=== PATIENT | female | born 1975 | race Caucasian/White ===

== ENCOUNTER → 2018-01-30 07:46 | Outpatient (CLI) | payer OTHER, SELFPAY ==
--- NOTE | 2018-01-30 07:46 | DT_ITS ---
This patient was seen during an EMR downtime January 27, 2018 - February 03, 2018. This patient may have a combination of paper and electronic documentation or all paper documentation. All documentation is viewable within the e-chart portion of [email or web address] for each patient visit.
--- NOTE | 2018-01-30 07:49 | BI_ITS ---
MAMMOGRAPHY - BILATERAL SCREENING REASON FOR EXAM: Female, 42 years old. Routine annual screening examination. PERTINENT HISTORY: Non-contributory. TECHNIQUE: Digital bilateral breast bev (3D mammographic acquisition) in the CC and MLO projections. 2-D mediolateral oblique (MLO) and craniocaudad (CC) views of both breasts were obtained. CAD: Full Field Digital Mammography with Computer Added Detection was performed. COMPARISON: Comparison is made with prior study dated January 10, 2017 and January 10, 2016. FINDINGS: Breast Composition: The breasts are heterogeneously dense, which may obscure small masses. There are no dominant masses or suspicious calcifications. No other significant abnormalities are identified. There has been no significant change since the prior study. BI/SCREENING MAMM (CAD), BILAT IMPRESSION: Stable bilateral screening mammogram. Yearly follow-up mammogram recommended. (A) ASSESSMENT CATEGORY: BIRADS Category 1: Negative. A letter regarding these results will be sent to the patient by the facility within 30 days. Approximately 10% of breast cancers are not detected by mammography. A normal mammogram should not delay biopsy of a clinically suspicious abnormality. [id number] Electronically Signed: Branden Whittaker MD at 8:36 EDT Tel [phone], Service support ,
== END ==
PROVIDERS: Family Provider Family Medicine; PCP Family Medicine; Visit Provider Family Medicine
DX: Z12.31 Encounter for screening mammogram for malignant neoplasm of breast (principal)
CPT/HCPCS: 77063; 77067

== ENCOUNTER → 2019-02-03 07:56 | Outpatient (CLI) | payer OTHER, SELFPAY ==
--- NOTE | 2019-02-03 07:58 | BI_ITS ---
MAMMOGRAPHY - BILATERAL SCREENING REASON FOR EXAM: Female, 43 years old. Routine annual screening examination. PERTINENT HISTORY: Non-contributory. TECHNIQUE: Digital bilateral breast fanny (3D mammographic acquisition) in the CC and MLO projections. 2-D mediolateral oblique (MLO) and craniocaudad (CC) views of both breasts were obtained. CAD: Full Field Digital Mammography with Computer Added Detection was performed. COMPARISON: Comparison is made with prior study dated January 30, 2018 and January 10, 2017. FINDINGS: Breast Composition: The breasts are heterogeneously dense, which may obscure small masses. There are no dominant masses or suspicious calcifications. No other significant abnormalities are identified. There has been no significant change since the prior study. BI/SCREEN MAMM (CAD) W/FANNY BILAT IMPRESSION: Stable bilateral screening mammogram. Yearly follow-up mammogram recommended. (A) ASSESSMENT CATEGORY: BIRADS Category 1: Negative. A letter regarding these results will be sent to the patient by the facility within 30 days. Approximately 10% of breast cancers are not detected by mammography. A normal mammogram should not delay biopsy of a clinically suspicious abnormality. [id number] Electronically Signed: Branden Whittaker, at 9:20 EDT , Service support ,
== END ==
PROVIDERS: Family Provider Family Medicine; PCP Family Medicine; Referring Provider Family Medicine; Visit Provider Family Medicine
DX: Z12.31 Encounter for screening mammogram for malignant neoplasm of breast (principal)
CPT/HCPCS: 77063; 77067

== ENCOUNTER → 2019-12-30 15:23 | Outpatient (CLI) | payer OTHER, SELFPAY ==
[2020-01-01 15:23] LABS: HPV Reflexed? NOT INDICATED
== END ==
PROVIDERS: PCP Family Medicine; Referring Provider Family Medicine; Visit Provider Family Medicine
DX: Z12.4 Encounter for screening for malignant neoplasm of cervix (principal)
CPT/HCPCS: 88175; G0145

== ENCOUNTER → 2020-02-09 07:40 | Outpatient (CLI) | payer OTHER, SELFPAY ==
--- NOTE | 2020-02-09 07:44 | BI_ITS ---
MAMMOGRAPHY - BILATERAL SCREENING REASON FOR EXAM: Female, 44 years old. Routine annual screening examination. PERTINENT HISTORY: Non-contributory. TECHNIQUE: Digital bilateral breast fanny (3D mammographic acquisition) in the CC and MLO projections. 2-D mediolateral oblique (MLO) and craniocaudad (CC) views of both breasts were obtained. CAD: Full Field Digital Mammography with Computer Added Detection was performed. COMPARISON: Comparison is made with prior examination dated February 03, 2019 and January 30, 2018. FINDINGS: Breast Composition: The breasts are heterogeneously dense, which may obscure small masses. There are no dominant masses or suspicious calcifications. No other significant abnormalities are identified. There has been no significant change since the prior study. BI/SCREEN MAMM (CAD) W/FANNY BILAT IMPRESSION: Stable bilateral screening mammogram. Yearly follow-up mammogram recommended. (A) ASSESSMENT CATEGORY: BIRADS Category 1: Negative. A letter regarding these results will be sent to the patient by the facility within 30 days. Approximately 10% of breast cancers are not detected by mammography. A normal mammogram should not delay biopsy of a clinically suspicious abnormality. [id number] Electronically Signed: Branden Whittaker, at 9:07 EDT , Service support ,
== END ==
PROVIDERS: PCP Family Medicine; Referring Provider Family Medicine; Visit Provider Family Medicine
DX: Z12.31 Encounter for screening mammogram for malignant neoplasm of breast (principal)
CPT/HCPCS: 77063; 77067

== ENCOUNTER → 2020-10-26 12:05 | Outpatient (CLI) | payer OTHER, SELFPAY ==
[2020-10-27 08:31] LABS: SARS-COV-2 TOTAL ABS Reactive (Nonreactive)
== END ==
PROVIDERS: PCP Family Medicine; Referring Provider Family Medicine; Visit Provider Family Medicine
DX: Z20.822 Contact with and (suspected) exposure to COVID-19 (principal)
CPT/HCPCS: 36415; 86769

== ENCOUNTER → 2021-01-11 14:46 | Outpatient (CLI) | payer OTHER, SELFPAY ==
[2021-01-11 18:32] LABS: Anion Gap 9 (5-15); BUN 6 mg/dL (7-18); BUN/Creat Ratio 8.9 RATIO (10-20); Calcium,Total 9.6 mg/dL (8.5-10.1); Chloride 106 mmol/L (98-107); Cholesterol 211 mg/dL (200); Creatinine, Serum 0.68 mg/dL (0.55-1.02); EST Glomerular Filtration Rate 99 mL/min (>60); Est Glom Filt Rate - Afr Amer 120 mL/min (>60); Glucose 77 mg/dL (74-106); High Density Lipoprotein 69 mg/dL; Sodium Level 141 mmol/L (136-145); Triglycerides 125 mg/dL; Very Low Density Lipoprotein 25 mg/dL (5-40)
== END ==
PROVIDERS: PCP Family Medicine; Referring Provider Family Medicine; Visit Provider Family Medicine
DX: Z01.419 Encounter for gynecological examination (general) (routine) without abnormal findings (principal)
CPT/HCPCS: 36415; 80048; 80061

== ENCOUNTER → 2021-02-09 07:16 | Outpatient (CLI) | payer OTHER, SELFPAY ==
--- NOTE | 2021-02-09 07:17 | BI_ITS ---
MAMMOGRAPHY - BILATERAL SCREENING REASON FOR EXAM: Female, 45 years old. Routine annual screening examination. PERTINENT HISTORY: Non-contributory. TECHNIQUE: Digital bilateral breast fanny (3D mammographic acquisition) in the CC and MLO projections. 2-D mediolateral oblique (MLO) and craniocaudad (CC) views of both breasts were obtained. CAD: Full Field Digital Mammography with Computer Added Detection was performed. COMPARISON: Comparison is made with prior study dated 02/09/2020 and 02/03/2019. FINDINGS: Breast Composition: The breasts are heterogeneously dense, which may obscure small masses. There are no dominant masses or suspicious calcifications. No other significant abnormalities are identified. There has been no significant change since the prior study. BI/SCRN MAMM (CAD)W/FANNY BILAT IMPRESSION: Stable bilateral screening mammogram. Yearly follow-up mammogram recommended. (A) ASSESSMENT CATEGORY: BIRADS Category 1: Negative. A letter regarding these results will be sent to the patient by the facility within 30 days. Approximately 10% of breast cancers are not detected by mammography. A normal mammogram should not delay biopsy of a clinically suspicious abnormality. [id number] Electronically Signed: Branden Whittaker MD at 8:42 EDT , Service support ,
== END ==
PROVIDERS: PCP Family Medicine; Referring Provider Family Medicine; Visit Provider Family Medicine
DX: Z12.31 Encounter for screening mammogram for malignant neoplasm of breast (principal)
CPT/HCPCS: 77063; 77067

== ENCOUNTER → 2021-04-26 16:17 | Outpatient (CLI) | payer OTHER, SELFPAY | PROVIDERS: PCP Family Medicine; Referring Provider Family Medicine; Visit Provider Family Medicine | DX: Z11.59 Encounter for screening for other viral diseases (principal) | CPT/HCPCS: 36415; 86769 ==

== ENCOUNTER → 2022-01-17 | Outpatient (CLI) | payer OTHER, SELFPAY ==
[2022-01-17 18:13] LABS: Thyroid Stim Hormone (TSH) 1.29 uIU/mL (0.358-3.74)
== END | disposition home or self-care (01) ==
LOC: MFPLAB 15:22
PROVIDERS: PCP Family Medicine; Referring Provider Family Medicine; Visit Provider Family Medicine
DX: Z00.00 Encounter for general adult medical examination without abnormal findings (principal); R63.5 Abnormal weight gain
CPT/HCPCS: 36415; 84443

== ENCOUNTER → 2022-02-13 | Outpatient (CLI) | payer OTHER, SELFPAY ==
--- NOTE | 2022-02-13 07:12 | BI_ITS ---
MAMMOGRAPHY - BILATERAL SCREENING REASON FOR EXAM: Female, 46 years old. Routine annual screening examination. PERTINENT HISTORY: Non-contributory. TECHNIQUE: Digital bilateral breast fanny (3D mammographic acquisition) in the CC and MLO projections. 2-D mediolateral oblique (MLO) and craniocaudad (CC) views of both breasts were obtained. CAD: Full Field Digital Mammography with Computer Added Detection was performed. COMPARISON: Comparison Mammogram study is dated 02/09/2021, 02/09/2020, 02/03/2019, 01/30/2018. FINDINGS: Breast Composition: The breasts are heterogeneously dense, which may obscure small masses. There are no dominant masses or suspicious calcifications. No other significant abnormalities are identified. There has been no significant change since the prior study. BI/SCRN MAMM (CAD)W/FANNY BILAT IMPRESSION: Stable bilateral screening mammogram. Yearly follow-up mammogram recommended. (A) ASSESSMENT CATEGORY: BIRADS Category 1: Negative. A letter regarding these results will be sent to the patient by the facility within 30 days. Approximately 10% of breast cancers are not detected by mammography. A normal mammogram should not delay biopsy of a clinically suspicious abnormality. [id number] Electronically Signed: Jani Pereira, at 8:58 EDT ,
== END | disposition home or self-care (01) ==
LOC: OPBI 07:09
PROVIDERS: PCP Family Medicine; Visit Provider Family Medicine
DX: Z12.31 Encounter for screening mammogram for malignant neoplasm of breast (principal)
CPT/HCPCS: 77063; 77067

== ENCOUNTER → 2023-01-18 | Outpatient (CLI) | payer OTHER, SELFPAY ==
[2023-01-30 10:09] LABS: HPV APTIMA, High Risk Negative (Negative)
[2023-02-02 11:10] LABS: HPV Reflexed? YES, CHARGE PATIENT
== END | disposition home or self-care (01) ==
PROVIDERS: PCP Family Medicine; Referring Provider Family Medicine; Visit Provider Family Medicine
DX: Z12.4 Encounter for screening for malignant neoplasm of cervix (principal)
CPT/HCPCS: 87624; 88175; G0145

== ENCOUNTER → 2023-02-18 | Outpatient (CLI) | payer OTHER, SELFPAY ==
--- NOTE | 2023-02-18 07:03 | BI_ITS ---
MAMMOGRAPHY - BILATERAL SCREENING REASON FOR EXAM: Female, 47 years old. Routine annual screening examination. PERTINENT HISTORY: Non-contributory. TECHNIQUE: Digital bilateral breast fanny (3D mammographic acquisition) in the CC and MLO projections. 2-D mediolateral oblique (MLO) and craniocaudad (CC) views of both breasts were obtained. CAD: Full Field Digital Mammography with Computer Added Detection was performed. COMPARISON: Comparison is made with prior study dated February 13, 2022 and February 09, 2021. FINDINGS: Breast Composition: The breasts are heterogeneously dense, which may obscure small masses. There are no dominant masses or suspicious calcifications. Stable small benign-appearing bilateral axillary lymph nodes. No other significant abnormalities are identified. There has been no significant change since the prior study. BI/SCRN MAMM (CAD)W/FANNY BILAT IMPRESSION: Stable bilateral screening mammogram. Yearly follow-up mammogram recommended. (A) ASSESSMENT CATEGORY: BIRADS Category 2: Benign. A letter regarding these results will be sent to the patient by the facility within 30 days. Approximately 10% of breast cancers are not detected by mammography. A normal mammogram should not delay biopsy of a clinically suspicious abnormality. [id number] Electronically Signed: Branden Whittaker MD at 10:12 EDT ,
== END | disposition home or self-care (01) ==
LOC: OPBI 06:57
PROVIDERS: PCP Family Medicine; Referring Provider Family Medicine; Visit Provider Family Medicine
DX: Z12.31 Encounter for screening mammogram for malignant neoplasm of breast (principal)
CPT/HCPCS: 77063; 77067

== ENCOUNTER → 2024-02-20 | Outpatient (CLI) | payer OTHER, SELFPAY ==
--- NOTE | 2024-02-20 07:06 | BI_ITS ---
MAMMOGRAPHY - BILATERAL SCREENING REASON FOR EXAM: Female, 48 years old. Routine annual screening examination. PERTINENT HISTORY: Non-contributory. TECHNIQUE: Digital bilateral breast fanny (3D mammographic acquisition) in the CC and MLO projections. 2-D mediolateral oblique (MLO) and craniocaudad (CC) views of both breasts were obtained. CAD: Full Field Digital Mammography with Computer Added Detection was performed. COMPARISON: Comparison is made with prior study dated February 18, 2023 and February 13, 2022. FINDINGS: Breast Composition: The breasts are heterogeneously dense, which may obscure small masses. There are no dominant masses or suspicious calcifications. Stable small bilateral axillary lymph nodes. No other significant abnormalities are identified. There has been no significant change since the prior study. BI/SCRN MAMM (CAD)W/FANNY BILAT IMPRESSION: Stable bilateral screening mammogram. Yearly follow-up mammogram recommended. (A) ASSESSMENT CATEGORY: BIRADS Category 2: Benign. A letter regarding these results will be sent to the patient by the facility within 30 days. Approximately 10% of breast cancers are not detected by mammography. A normal mammogram should not delay biopsy of a clinically suspicious abnormality. [id number] Electronically Signed: Branden Whittaker MD at 8:00 EDT ,
== END | disposition home or self-care (01) ==
LOC: OPBI 07:06
PROVIDERS: PCP Family Medicine; Referring Provider Family Medicine; Visit Provider Family Medicine
DX: Z12.31 Encounter for screening mammogram for malignant neoplasm of breast (principal)
CPT/HCPCS: 77063; 77067

== ENCOUNTER → 2025-02-25 | Outpatient (CLI) | payer OTHER, SELFPAY ==
--- NOTE | 2025-02-25 07:07 | BI_ITS ---
EXAM: SCRN MAMM (CAD)W/FANNY BILAT DATE: 02/25/2025 CLINICAL HISTORY: F, Age 49 y/o , SCREENING TECHNIQUE: SCRN MAMM (CAD)W/FANNY BILAT COMPARISON: Prior exam(s) dated 02/20/2024, 02/18/2023, 02/13/2022. FINDINGS: TISSUE DENSITY: There are scattered areas of fibroglandular density. Bilateral Breast Mammographic Findings: No significant masses, calcifications or other abnormalities are identified. BI/SCRN MAMM (CAD)W/FANNY BILAT IMPRESSION: There is no mammographic evidence of malignancy. OVERALL FINAL ASSESSMENT BI-RADS 1: NEGATIVE. RECOMMEND ANNUAL MAMMOGRAPHIC SCREENING. RECOMMENDATION: Routine annual follow-up in 1 Year A letter with findings and recommendations will be mailed to the patient. Reading Location: [id number]
--- NOTE | 2025-02-25 07:07 | BI_ITS ---
EXAM: SCRN MAMM (CAD)W/FANNY BILAT DATE: 02/25/2025 CLINICAL HISTORY: F, Age 49 y/o , SCREENING TECHNIQUE: SCRN MAMM (CAD)W/FANNY BILAT COMPARISON: Prior exam(s) dated 02/20/2024, 02/18/2023, 02/13/2022. FINDINGS: TISSUE DENSITY: There are scattered areas of fibroglandular density. Bilateral Breast Mammographic Findings: No significant masses, calcifications or other abnormalities are identified. BI/SCRN MAMM (CAD)W/FANNY BILAT IMPRESSION: There is no mammographic evidence of malignancy. OVERALL FINAL ASSESSMENT BI-RADS 1: NEGATIVE. RECOMMEND ANNUAL MAMMOGRAPHIC SCREENING. RECOMMENDATION: Routine annual follow-up in 1 Year A letter with findings and recommendations will be mailed to the patient. Reading Location: [id number]
--- OUTSIDE RECORDS SUMMARY | 2025-02-25 07:21 | XMS RPT_ITS | CCD ---
Author Organization [facility] Informat ion Partnership [facility] Care Team Providers Care Agronomist Name Role Phone SAMPSON RUBIO Attending Unava ilKELLY Montes Primary Care Unavailable Kelly Marley Referring Unavailable Kelly Marley Attending Unavailable Kelly Marley Primary Care Unavailable Allergies Allergy Classification Reported Allergen(s) Allergy Type Date of Onset Reaction(s) Facility (1 source) Penicillins; Translations: [PENICILLINS] Propensity to adverse reactions to drug (disorder) [facility] Repository Problems Problem Classification Problem Date Documented Da te Episodic/Chronic Other and unspecified benign neoplasm (2 sources) Benign lipomatous neoplasm, unspecified; Translations: [Benign lipomatous neoplasm, unspecified] Onset: 03-05-2023 Episodic Other screening for suspected conditions (not mental disorders or infectious disease) (1 source) Encounter for screening mammogram for malignant neoplasm of breast; Translations: [Encounter for screening mammogram for malignant neoplasm of breast] Onset: 03-06-2024 Episodic Results Test Name Value Interpretation Reference Range Facility SCRN MAMM (CAD)W/FANNY BILATo n 02-20-2024 SCRN MAMM (CAD)W/FANNY BILAT [facility] Imaging Services [address], [place] [id number] SCRN MAMM (CAD)W/FANNY BILAT MR#: [id number] Acct: [id number] Name: TRAY MARVIN Rep #: [id number] : 1975 F 48 From: Branden travis MD PCP: Dr. Kelly Marley MD Status: REG CLI Study: SCRN MAMM (CAD)W/FANNY BILAT Date of Exam: 01/25 03/18 Exam# [id number] Ordering Dr: Kelly Marley MD [id number] MAMMOGRAPHY - BILATERAL SCREENING REASON FOR EXAM: Female, 48 years old. Routine annual screening examination. PERTINENT HISTORY: Non-contributory. TECHNIQUE: Digital bilateral breast fanny (3D mammographic acquisition) in the CC and MLO projections. 2-D mediolateral oblique (MLO) and craniocaudad (CC) views of both breasts were obtained. CAD: Full Field Digital Mammography with Computer Added Detection was performed. COMPARISON: Comparison is made with prior study dated February 18, 2023 and February 13, 2022. FINDINGS: Breast Composition: The breasts are heterogeneously dense, which may obscure small masses. There are no dominant masses or suspicious calcifications. Stable small bilateral axillary lymph nodes. No other significant abnormalities are identified. There has been no significant change since the prior study. BI/SCRN MAMM (CAD)W/FANNY BILAT IMPRESSION: Stable bilateral screening mammogram. Yearly follow-up mammogram recommended. (A) ASSESSMENT CATEGORY: BIRADS Category 2: Benign. A letter regarding these results will be sent to the patient by the facility within 30 days. Approximately 10% of breast cancers are not detected by mammography. A normal mammogram should not delay biopsy of a clinically suspicious abnormality. [id number] Electronically Signed: Branden Whittaker MD at 8:00 EDT , CC: Dr. Kelly Marley MD Senior Chemical Engineer: Signed Normal [facility] Cervical or vagninal specime n microscopic examination by cytology stain (reported asOrdered By: Kelly Marley on 01-18-2023 Cytology report Cyto stain Doc (Cvx/Vag) Comment . [facility] Comment on above: The Pap smear is a s creening test designed to aid in thedetection of premalignant and malignant conditions of theuterine cervix. It is not a diagnostic procedure andshould not be used as the sole means of detecting cervicalcancer. Both false-positive and false-negative reports dooccur. Detection in cervical specim en of any of human papilloma virus (HPV) 16, 18, 31, 33,Ordered By: Kelly Marley on 01-18-2023 HPV 16+18+31+33+35+39+45+51 +52+56+58+59+66+68 DNA Probe+sig amp Ql (Cvx) Negative Negative [facility] Comment on above: This nucleic acid am plification test detects fourteen high-risk HPV types (16,18,31,33,35,39,45,51,52,56,58,59,66,68)without differentiation.Performed at: [facility] [id number] Director: Analia Plummer MD, Phone: [phone] at: [facility] [address] [place], [place] [id number] Director: Joey Ortiz MD, Phone: [phone] at: =[facility] [id number] Director: Analia Plummer MD, Phone: [phone] Laboratory - CytologyOrdered By: Kelly Marley on 01-18-2023 Endbander Cyto stain Nom (Cvx/Vag) [ID] Comment . [facility] Comment on above: Khalif Carpio totechnologist (ASCP) Laboratory - Miscellaneous t estsOrdered By: Kelly Marley on 01-18-2023 Service comment (Unsp spec) [Interp] Comment . [facility] Comment on above: This liquid based Th inPrep(R) pap test was screened withthe use of an image guided system. Service comment (Unsp spec) [Interp] . . [facility] No Panel InformationOrdered By: Kelly Marley on 01-18-2023 Pathology report final diagnosis Narrative Comment . [facility] Comment on above: NEGATIVE FOR INTRAEP ITHELIAL LESION OR MALIGNANCY.THIS SPECIMEN WAS RESCREENED PART OF OUR STUDENT AMBASSADOR PROGRAM. No Panel Informationon 01-17 Thyroid Stimulating Hormone (TSH) 1.29 uIU/mL 0.358-3.74 [facility] Work Phone: Encounters Encounter Date Encounter Type Care Provider Facility Start: 02-20-2024 End: 02-20-2024 ambulatory Kelly Chris Bennettmarzena Facility:[facility] Start: 03-05-2023 End: 03-05-2023 Emergency department patient visit SAMPSON LADD [facility] Start: 02-18-2023 End: 02-18-2023 ambulatory [facility] Work Phone: Start: 02-18-2023 End: 02-18-2023 Patient encounter procedure [facility] Work Phone: Start: 01-18-2023 End: 01-18-2023 ambulatory [facility] Work Phone: Start: 01-18-2023 End: 01-18-2023 Patient encounter procedure [facility] Start: 02-13-2022 End: 02-13-2022 Patient encounter procedure [facility] Start: 01-17-2022 End: 01-17-2022 Patient encounter procedure [facility] Procedures Date Procedure Procedure Detail Performing Clinician Start: 02-18-2023 Screening mammography Start: 02-13-2022 Screening mammography Plan of Treatment Date Care Activity Detail Author Path report.final Dx Spec [facility] Payers Date Payer Category Payer Self-pay [id number] 2019 Private Health Insurance [id number] 1975 Unknown [id number] Private Health Insurance [id number] Unknown [id number] Social History Date Type Detail Facility Tobacco smoking stat [facility] Unknown if ever smoked [facility] Work Phone: Start: 1975 Sex Assigned At Female [facility] Clinical Note 01-18-2023 Note Date & Type Note Facility 01-18-2023 Note [facility] Pap Smear Specimen Adequacy January 18, 2023 2:45pm Comment . Satisfactory for evaluation. Endocervical and/or squamous metaplasticcells (endocervical component) are present. Comment on above: Satisfactory for kala luation. Endocervical and/or squamous metaplasticcells (endocervical component) are present. Clinical Note 01-18-2023 Note Date & Type Note Facility 01-18-2023 Note [facility] Pap Smear QC Review January 18, 2023 2:45pm Comment . Clara Lambert, Supervisory Threading Machine Operator (ASCP) Comment on above: Lucina Hawk Threading Machine Operator (ASCP) Evaluation note Note Date & Type Note Facility Evaluation note No assessment information availa ble [facility] Work Phone: Chief Complaint and Reason for Visit Chief Complaint SCREENING Chief Complaint SCREENING SCREENING Summary Purpose Family History No Family History Records FoundNo Family History Records Found Advance Directives No Advanced Directives Records FoundNo Advanced Directives Records Found Additional Source Comments Goals (unrecognized section and content) Goals may be documented in a n alternate sectionGoals may be documented in an alternate sectionGoals may be documented in an alternate sectionGoals may be documented in an alternate section Care Teams (unrecognized sec tion and content) Team Status: Active Member Role Status Dates Dr. Kelly Marley MD Family Provider Active Dr. Kelly Marley MD Primary Care Provider Active Team Status: Inactive Member Role Status Dates Dr. Kelly Marley MD Primary Care Prov ider, Attending Provider, Referring Provider Active INFORMATION SOURCE (unrecogn ized section and content) DATE CREATED AUTHOR 03/11/2023 [facility] DATE CREATED AUTHOR AUTHOR'S ORGANSPRING ATION 03/12/2024 [facility] FOR RECORDS PERTAINING TO PATIENTS WHO ARE OR HAVE BEEN ENROLLED IN A CHEMICAL DEPENDENCY/SUBSTANCEABUSE PROGRAM, SOME INFORMATION MAY BE OMITTED. This clinical summary was aggregated from multiple sources. Caution should be exercised in using it in the provision of clinical care. This summary normalizes information from multiple sources, and as a consequence, information in this document may materially change the coding, format and clinical context of patient data. In addition, data may be omitted in some cases. CLINICAL DECISIONS SHOULD BE BASED ON THE PRIMARY CLINICAL RECORDS. [employer] [facility]. provides no warranty or guarantee of the accuracy or completeness of information in this document.
--- OUTSIDE RECORDS SUMMARY | 2025-02-25 07:21 | XMS RPT_ITS | CCD ---
Author Organization [facility] Care Team Providers Care Machining Supervisor Name Role Phone SAMPSON RUBIO Attending Unava ilKELLY Montes Primary Care Unavailable Kelly Marley Referring Unavailable Kelly Marley Attending Unavailable Kelly Marley Primary Care Unavailable Allergies Allergy Classification Reported Allergen(s) Allergy Type Date of Onset Reaction(s) Facility (1 source) Penicillins; Translations: [PENICILLINS] Propensity to adverse reactions to drug (disorder) [facility] Repository Problems Problem Classification Problem Date Documented [...] BILATo n 02-20-2024 SCRN MAMM (CAD)W/FANNY BILAT [facility] Imaging Services [address] [place], [place] [id number] SCRN MAMM (CAD)W/FANNY BILAT MR#: [id number] Acct: [id number] Name: TRAY MARVIN Rep #: [id number] : 1975 F 48 From: Branden travis MD PCP: Dr. Kelly Marley MD Status: REG CLI Study: SCRN MAMM (CAD)W/FANNY BILAT Date of Exam: 01/25 03/18 Exam# [id number] Ordering Dr: Kelly Marley MD [id number] MAMMOGRAPHY - BILATERAL SCREENING REASON FOR EXAM: [...] delay biopsy of a clinically suspicious abnormality. [id number] Electronically Signed: Branden Whittaker MD at 8:00 EDT , CC: Dr. Kelly Marley MD Push Connector Assembler: Signed Normal [facility] Cervical or vagninal specime n microscopic examination by cytology stain (reported asOrdered By: Kelly Marley on 01-18-2023 Cytology report Cyto stain Doc (Cvx/Vag) Comment . [facility] Comment on above: The Pap smear is [...] DNA Probe+sig amp Ql (Cvx) Negative Negative [facility] Comment on above: This nucleic acid am plification test detects fourteen high-risk HPV types (16,18,31,33,35,39,45,51,52,56,58,59,66,68)without differentiation.Performed at: [facility] [id number] Director: Analia Plummer MD, Phone: [phone] at: [facility] Cyto [id number] [place], [place] [id number] Director: Joey Ortiz MD, Phone: [phone] at: =[facility] - [facility] [id number] Director: Analia Plummer MD, Phone: [phone] Laboratory - CytologyOrdered By: Kelly Marley on 01-18-2023 Account Contact Associate Cyto stain Nom (Cvx/Vag) [ID] Comment . [facility] Comment on above: Khalif Carpio totechnologist (ASCP) Laboratory - Miscellaneous t estsOrdered By: Kelly Marley on 01-18-2023 Service comment (Unsp spec) [Interp] Comment . [facility] Comment on above: This liquid based Th inPrep(R) pap test was screened withthe use of an image guided system. Service comment (Unsp spec) [Interp] . . [facility] No Panel InformationOrdered By: Kelly Marley on 01-18-2023 Pathology report final diagnosis Narrative Comment . [facility] Comment on above: NEGATIVE FOR INTRAEP ITHELIAL LESION OR MALIGNANCY.THIS SPECIMEN WAS RESCREENED PART OF OUR SUPERVISOR [employer] PROGRAM. No Panel Informationon 01-17 Thyroid Stimulating Hormone (TSH) 1.29 uIU/mL 0.358-3.74 [facility] Work Phone: Encounters Encounter Date Encounter Type Care Provider Facility Start: 02-20-2024 End: 02-20-2024 ambulatory Kelly Chris Bennettmarzena Facility:[facility] Start: 03-05-2023 End: 03-05-2023 Emergency department patient visit SAMPSON LADD [facility] Start: 02-18-2023 End: 02-18-2023 ambulatory [facility] Work Phone: Start: 02-18-2023 End: 02-18-2023 Patient encounter procedure [facility] Work Phone: Start: 01-18-2023 End: 01-18-2023 ambulatory [facility] Work Phone: Start: 01-18-2023 End: 01-18-2023 Patient encounter procedure [facility] Start: 02-13-2022 End: 02-13-2022 Patient encounter procedure [facility] Start: 01-17-2022 End: 01-17-2022 Patient encounter procedure [facility] Procedures Date Procedure Procedure Detail Performing Clinician Start: 02-18-2023 Screening mammography Start: 02-13-2022 Screening mammography Plan of Treatment Date Care Activity Detail Author Path report.final Dx Spec [facility] Payers Date Payer Category Payer Self-pay [id number] 2019 Private Health Insurance [id number] 1975 Unknown [id number] Private Health Insurance [id number] Unknown [id number] Social History Date Type Detail Facility Tobacco smoking stat [facility] Unknown if ever smoked [facility] Work Phone: Start: 1975 Sex Assigned At Female [facility] Clinical Note 01-18-2023 Note Date & Type Note Facility 01-18-2023 Note [facility] Pap Smear Specimen Adequacy January 18, 2023 2:45pm Comment . Satisfactory for evaluation. Endocervical and/or squamous metaplasticcells (endocervical component) are present. Comment on above: Satisfactory for kala luation. Endocervical and/or squamous metaplasticcells (endocervical component) are present. Clinical Note 01-18-2023 Note Date & Type Note Facility 01-18-2023 Note [facility] Pap Smear QC Review January 18, 2023 2:45pm Comment . Clara Lambert, Supervisory Screen Printing Press Operator (ASCP) Comment on above: Lucina Hawk Screen Printing Press Operator (ASCP) Evaluation note Note Date & Type Note Facility Evaluation note No assessment information availa ble [facility] Work Phone: Chief Complaint and Reason for [...] DATE CREATED AUTHOR AUTHOR'S ORGANSPRING ATION 03/12/2024 [facility] FOR RECORDS PERTAINING TO PATIENTS WHO [...] BE BASED ON THE PRIMARY CLINICAL RECORDS. [employer] [facility] provides no warranty or guarantee of the accuracy or completeness of information in this document.
== END | disposition home or self-care (01) ==
LOC: OPBI 07:06
PROVIDERS: PCP Family Medicine; Referring Provider Family Medicine; Visit Provider Family Medicine
DX: Z12.31 Encounter for screening mammogram for malignant neoplasm of breast (principal)
CPT/HCPCS: 77063; 77067

== ENCOUNTER → 2025-04-16 | Outpatient (CLI) | payer OTHER, SELFPAY ==
--- OUTSIDE RECORDS SUMMARY | 2025-04-16 07:53 | XMS RPT_ITS | CCD ---
Author Organization [facility] Informat ion Partnership DRYWALL HANGER HEL[employer] [facility] Care Team Providers Care Insurance Loss Assessor Name Role Phone SAMPSON RUBIO Attending Unava ilable KELLY MARLEY Primary Care Unavailable Mona GLASER, Dr. Mcclellan Primary Care Provider Mona GLASER, Dr. Mcclellan Attending Provider Mona GLASER, Dr. Mcclellan Referring Provider Ayaka GLASER, Dr. Kelly Perez Referring Provider Marciano GLASER, Dr. Mancuso Attending Provider Jamee Tariq Attending Unavailable Kelly Marley Referring Unavailable Eleuterio Dunn Primary Care Unavailable Eleuterio Dunn Referring Unavailable Eleuterio Dunn Primary Care Unavailable Eleuterio Dunn Attending Unavailable Allergies Allergy Classification Reported Allergen(s) Allergy Type Date of Onset Reaction(s) Facility (3 sources) Penicillins; Translations: [PENICILLINS] Propensity to adverse reactions to drug (disorder) 3 [facility] Repository (1 source) Minocycline Drug Allergy 5 [facility] (1 source) Minocycline Drug Allergy 5 [facility] Repository Medications Current Medications Medication Drug Class(es) Dates Sig (Normalized) Sig (Original) Multivitamin tablet (1 source) Start: 04-13-2025 Multivitamin tablet Active 1 {tbl} PO daily April 13, 2025 12:00am Problems Problem Classification Problem Date Documented Date Episodic/Chronic Administrative/social admission (1 source) First encounter by subject; Translations: [Persons encountering health services in other specified circumstances] 04-13-2025 Episodic Allergic reactions (1 source) Allergic condition; Translations: [Allergy, unspecified, initial encounter] 04-13-2025 Episodic Headache; including migraine (1 source) Migraine; Translations: [Migraine, unspecified, not intractable, without status migrainosus] 04-13-2025 Chronic Other and unspecified benign neoplasm (2 sources) Benign lipomatous neoplasm, unspecified; Translations: [Benign lipomatous neoplasm, unspecified] Onset: 03-05-2023 Episodic Other screening for suspected conditions (not mental disorders or infectious disease) (3 sources) Patient encounter status; Translations: [Encounter for screening for cardiovascular disorders] Onset: 03-03-2025 04-13-2025 Episodic Results Test Name Value Interpretation Reference Range Facility Internal Medicine Office Vis iton 04-12-2025 Internal Medicine Office Visit [facility] [address] [place] [address] [place] [address] OFFICE VISIT Date of Service: 04/13/25 MR#: [id number] Acct: [id number] Name: TRAY MARVIN Christine Rep #: [id number] : 1975 Provider: Dr. Jamee arana MD Age/Sex: 49/F Location: [facility] Status: Signed Intake Vital Signs 04/13/25 14:21 Height 5 ft 4 in Weight: 143 lb BMI 24.5 BP 126/74 H Blood Pressure Location Rt brachial Position Sitting Respiration 16 Pulse 80 Pulse Source Monitor Temp 96.5 F L Temp Source Temporal Pulse Oximetry (%) 97 Oxygen Delivery Method room air Intake Visit Reasons: 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 SENT Chief Complaint: establishing Systems Consultant Required: No Accompanied by: Self Is patient in pain?: No Allergies minocycline (vectrin) Allergy (Severe, Verified 04/13/25 14:05) Hives Penicillins (PCN) Allergy (Severe, Verified 04/13/25 14:05) Hives Medications ???Medication ???Instructions ???Recorded ???Confirmed ???Type multivitamin 1 tab PO QDAY 04/13/25 04/13/25 Ma story Nurse's Note: establishing patient [facility] Medical History (Updated 04/13/25 @ 14:[address] Jamee Tariq MD) Colonoscopy planned Migraines Allergies Anemia Surgical History (Updated 04/13/25 @ 14:[address] Jamee Tariq MD) No pertinent past surgical history Family History (Updated 04/13/25 @ 14:[address] Jamee Tariq MD) Grandfather Angina at rest Arthritis Cancer lypmhoma Myocardial infarction Heart disease Hyperlipidemia CVA (cerebral vascular accident) Grandmother Hx of blood clots Diabetes Hypertension Hyperlipidemia Kidney disease Mother Hx of blood clots Hypertension Hyperlipidemia Father Hypertension Hyperlipidemia Brother Hypertension Social History (Updated 04/13/25 @ 14:[address] Jamee Tariq MD) adopted: No household members: spouse housing: house current occupational status: employed current occupation: accounting and payroll current occupational exposures/hazards: No pets and animals: Yes pets and animals: dog(s) leisure activities: reading history of recent travel: No sexually active: Yes Smoking Status: Never smoker second hand exposure: No alcohol intake: never substance use type: does not use well-balanced diet: daily or most days caffeine: Yes Type: carbonated beverages eating out: 1-3 times/week during the past year weight has: remained stable what type of physical activity do you participate in: walking frequency: daily duration: 30-45 minutes/day seatbelt use: always do you feel safe at home: Yes Questionnaire PQ-9 BMS Over the last 2 weeks, how often have you been bothered by any of the following problems? 1. Little interest or pleasure in doing things: not at all 2. Feeling down, depressed, or hopeless: not at all 3. Trouble falling or staying asleep, or sleeping too much: not at all 4. Feeling tired or having little energy: not at all 5. Poor appetite or overeating: not at all 6. Feeling bad about yourself - or that you are a failure or have let yourself and your family down: not at all 7. Trouble concentrating on things, such as reading the newspaper or watching television: not at all 8. Moving or speaking so slowly that other people could have noticed? - Or the opposite - being so fidgety or restless that you have been moving around a lot more than usual: not at all 9. Thoughts that you would be better off or of hurting yourself in some way: not at all Total score: 0 If you checked off any problems, how difficult have these problems made it for you to do your work, take care of things at home, or get along with other people?: not difficult at all Source: Developed by Drs. Davis Ramsay, Barbara Riley, Efren Ray and colleagues, with an educational alicia from [employer]. [facility] Chief Complaint: establishing Details: TRAY MARVIN, is a 49 F who presents to the office today to establish care. She was seeing Dr. Marley and last saw them a little over a year ago. She has a work form that needs to be completed. She is due for some routine blood work and is up to date on her screening. She doesn't want any immunizations. She doesn't smoke and doesn't take any prescription medications. She reports she is eating healthy and staying active. The patient has a history of some bowel problems. She reports she will get symptoms of diarrhea with certain foods. She questions if it is dairy related, but also admits that other foods can trigger it as well. Allergies: PCN, minocycline Medications reviewed: Yes Tray likes to exercises by walking. They watch their diet for sodium, low fat, and low cholesterol most of the time. List of current specialists seen: None End of life planning discussed including patient's advanced directive wishes: Discus (more content not included)... Normal [facility] Breast imaging reportOrdered By: Reyna García on 02-25-2025 Study report [facility] Imaging Services [address] [place] [address] SCRN MAMM (CAD)W/FANNY BILAT MR#: [id number] Acct: [id number] Name: TRAY MARVIN Rep #: [id number] : 1975 F 49 From: Mahi García MD PCP: Dr. Eleuterio Dunn MD Status: [facility] Study:SCRN MAMM (CAD)W/FANNY BILAT Date of Exa m: 02/25/25 Exam# [id number] Ordering Dr: Anna Dunn MD EXAM: SCRN MAMM (CAD)W/FANNY BILAT DATE: 02/25/2025 CLINICAL HISTORY: F, Age 49 y/o , SCREENING TECHNIQUE: SCRN MAMM (CAD)W/FANNY BILAT COMPARISON: Prior exam(s) dated 02/20/2024, 02/18/2023, 02/13/2022. FINDINGS: TISSUE DENSITY: There are scattered areas of fibroglandular density. Bilateral Breast Mammographic Findings: No significant masses, calcifications or other abnormalities are identified. BI/SCRN MAMM (CAD)W/FANNY BILAT IMPRESSION: There is no mammographic evidence of malignancy. OVERALL FINAL ASSESSMENT BI-RADS 1: NEGATIVE. RECOMMEND ANNUAL MAMMOGRAPHIC SCREENING. RECOMMENDATION: Routine annual follow-up in 1 Year A letter with findings and recommendations will be mailed to the patient. Reading Location: [facility] CC: Dr. Eleuterio Dunn MD ~ Muck Miner: Signed [facility] SCRN MAMM (CAD)W/FANNY BILATo n 02-25-2025 SCRN MAMM (CAD)W/FANNY BILAT [facility] Imaging Services [address] [place] [id number] SCRN MAMM (CAD)W/FANNY BILAT MR#: [id number] Acct: [id number] Name: TRAY MARVIN Christine Rep #: [id number] : 1975 F 49 From: Reyna García MD PCP: Dr. Eleuterio Dunn MD Status: [facility] Study: SCRN MAMM (CAD)W/FANNY BILAT Date of Exam: 11/17 Exam# [id number] Ordering Dr: Eleuterio Dunn EXAM: SCRN MAMM (CAD)W/FANNY BILAT DATE: 02/25/2025 CLINICAL HISTORY: F, Age 49 y/o , SCREENING TECHNIQUE: SCRN MAMM (CAD)W/FANNY BILAT COMPARISON: Prior exam(s) dated 02/20/2024, 02/18/2023, 02/13/2022. FINDINGS: TISSUE DENSITY: There are scattered areas of fibroglandular density. Bilateral Breast Mammographic Findings: No significant masses, calcifications or other abnormalities are identified. BI/SCRN MAMM (CAD)W/FANNY BILAT IMPRESSION: There is no mammographic evidence of malignancy. OVERALL FINAL ASSESSMENT BI-RADS 1: NEGATIVE. RECOMMEND ANNUAL MAMMOGRAPHIC SCREENING. RECOMMENDATION: Routine annual follow-up in 1 Year A letter with findings and recommendations will be mailed to the patient. Reading Location: [facility] CC: Dr. Eleuterio Dunn MD Muck Miner: Signed Normal [facility] Cervical or vagninal specime n microscopic examination by cytology stain (reported asOrdered By: Kelly Marley on 01-18-2023 Cytology report Cyto stain Doc (Cvx/Vag) Comment . [facility] Comment on above: The Pap smear [...] DNA Probe+sig amp Ql (Cvx) Negative Negative [facility] Comment on above: This nucleic acid am plification test detects fourteen high-risk HPV types (16,18,31,33,35,39,45,51,52,56,58,59,66,68)without differentiation.Performed at: - [address] [id number] Director: Analia Plummer MD, Phone: [phone] at: [facility] [address] [place], [place] [id number] Director: Joey Ortiz MD, Phone: [phone] at: = - [address] [id number] Director: Analia Plummer MD, Phone: [phone] Laboratory - CytologyOrdered By: Kelly Marley on 01-18-2023 Internal Communications Specialist Cyto stain Nom (Cvx/Vag) [ID] Comment . [facility] Comment on above: Khalif Carpio totechnologist (ASCP) Laboratory - Miscellaneous t estsOrdered By: Kelly Marley on 01-18-2023 Service comment (Unsp spec) [Interp] Comment . [facility] Comment on above: This liquid based Th inPrep(R) pap test was screened withthe use of an image guided system. Service comment (Unsp spec) [Interp] . . [facility] No Panel InformationOrdered By: Kelly Marley on 01-18-2023 Pathology report final diagnosis Narrative Comment . [facility] Comment on above: NEGATIVE FOR INTRAEP ITHELIAL LESION OR MALIGNANCY.THIS SPECIMEN WAS RESCREENED PART OF OUR CHIP PERSON PROGRAM. No Panel Informationon 01-17 Thyroid Stimulating Hormone (TSH) 1.29 uIU/mL 0.358-3.74 [facility] Work Phone: Vital Signs Date Time Vital Sign Value Performing Clinician Gautam henderson 04-13-2025 14:21-0400 Body height 162.[address] Eleuterio Dunn MD Work Phone: [facility] 04-13-2025 14:21-0400 Body mass index (BMI) [Ratio] 24.5 kg/m2 Dr. Eleuterio Dunn MD Work Phone: [facility] 04-13-2025 14:21-040 Body temperature 96.5 [degF] Dr. Eleuterio Dunn MD Work Phone: [facility] 04-13-2025 14:21-0400 Body weight 64.[address] Eleuterio Dunn MD Work Phone: [facility] 04-13-2025 14:21-040 Diastolic blood pressure 74 mm[Hg] Dr. Eleuterio Dunn MD Work Phone: [facility] 04-13-2025 14:21-0400 Heart rate 80 /min Dr. Eleuterio Dunn MD Work Phone: [facility] 04-13-2025 14:21-0400 Respiratory rate 16 /min Dr. Eleuterio Dunn MD Work Phone: [facility] 04-13-2025 14:21-0400 SaO2% (BldA) [Mass fraction] 97 % Dr. Eleuterio Dunn MD Work Phone: [facility] 04-13-2025 14:21-0400 Systolic blood pressure 126 mm[Hg] Dr. Eleuterio Dunn MD Work Phone: [facility] Encounters Encounter Date Encounter Type Care Provider Facility Start: 04-13-2025 Encounter for genera l adult medical examination without abnormal findings Jamee Guerralay [facility] Start: 04-13-2025 End: 04-13-[address] Jamee Tariq MD -[facility] Work Phone: Start: 04-13-2025 End: 04-13-[address] Eleuterio Dunn MD Work Phone: -[facility] Start: 02-25-2025 End: 02-25-[address] Eleuterio Dunn MD Work Phone: -[facility] Start: 02-25-2025 End: 02-25-[address] Eleuterio Dunn MD -[facility] Work Phone: Start: 02-25-2025 End: 02-25-2025 ambulatory Eleuterio Dunn Facility:[facility] Start: 03-05-2023 End: 03-05-2023 Emergency department [facility] Start: 02-18-2023 End: 02-18-2023 ambulatory [facility] Work Phone: Start: 02-18-2023 End: 02-18-2023 Patient encounter procedure [facility] Work Phone: Start: 01-18-2023 End: 01-18-2023 ambulatory [facility] Work Phone: Start: 01-18-2023 End: 01-18-2023 Patient encounter procedure [facility] Start: 02-13-2022 End: 02-13-2022 Patient encounter procedure [facility] Start: 01-17-2022 End: 01-17-2022 Patient encounter procedure [facility] Date Procedure Procedure Detail Performing Clinician Start: 02-25-2025 Screening mammography Talha Dunn MD Work Phone: Start: 02-18-2023 Screening mammography Start: 02-13-2022 Screening mammography Plan of Treatment Date Care Activity Detail Author CBC W Auto Differential panel - Blood [facility] Comprehensive metabo lic 1999 panel - Serum or Plasma [facility] Lipid 1996 panel - Serum or Plasma [facility] Path report.final Dx Spec [facility] Immunizations Immunization Date Immunization Notes Care Provider Fa anita 12-03-2014 tetanus toxoid, reduced diphtheria toxoid, and acellular pertussis vaccine, adsorbed Dr. Eleuterio Dunn MD Work Phone: [facility] Payers Date Payer Category Payer Self-pay [id number] 2019 Private Health Insurance [id number] 1975 Unknown [id number]. [id number] Private Health Insurance [id number] Unknown [id number] Unknown [id number] Social History Date Type Detail [facility] Work Phone: Start: 1975 Sex Assigned At Female [facility] Work Phone: Start: 04-13-2025 Tobacco smoking stat us [facility] Never smoked tobacco (finding) [facility] Gender Identity Identifies as fe male gender (finding) [facility] Sexual Orientation Heterosexual (finding) [facility] Clinical Note 01-18-2023 Note Date & Type Note Facility 01-18-2023 Note [facility] Pap Smear Specimen Adequacy January 18, 2023 2:45pm Comment . Satisfactory for evaluation. Endocervical and/or squamous metaplasticcells (endocervical component) are present. Comment on above: Satisfactory for kala luation. Endocervical and/or squamous metaplasticcells (endocervical component) are present. Clinical Note 01-18-2023 Note Date & Type Note Facility 01-18-2023 Note [facility] Pap Smear QC Review January 18, 2023 2:45pm Comment . Clara Lambert, Supervisory Emergency Technician (ASCP) Comment on above: Lucina Hawk Emergency Technician (ASCP) Evaluation note Note Date & Type Note Facility Evaluation note No assessment information availa ble [facility] Work Phone: Evaluation note Note Date & Type Note Facility Evaluation note Diagnosis Onset Date Resolution Screening for cardiovascular condition noneactive April 13, 2025 2:04pm Establishing care with new doctor, encounter for noneactive April 13 2:04pm [facility] Work Phone: Reason for referral (narrative) Note Date & Type Note Facility Reason for referral (narrative) No reason for referral information available [facility] Work Phone: Chief Complaint and Reason for Visit Chief Complaint SCREENING Chief Complaint SCREENING SCREENING Chief Complaint Admit Date SCREENING February 25, 2025 7:05a m Chief Complaint Admit Date SCREENING February 25, 2025 7:05a m 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 SENT April 13 2:04pm Reason for Visit Admit Date Screening for cardiovascular condition A ugust 2024 2:04pm Establishing care with new doctor, don nter for April 13, 2025 2:04pm Summary Purpose Family History No Family History Records Found Relationship Condition Age at Onset Recorded Date/T melody grandfather Angina at rest Unknown Arthritis Unknown Malignant neoplasm Unknown Myocardial infarction Unknown Cardiac disease Unknown Hyperlipidemia Unknown Cerebrovascular accident (CVA) Unknown grandmother History of blood clots Unknown Diabetes mellitus Unknown Hypertension Unknown Kidney disorder Unknown mother History of blood clots Unknown father Hypertension Unknown brother Hypertension Unknown Advance Directives No Advanced Directives Records FoundNo [...] Prov ider, Attending Provider, Referring Provider Active Team Status: Active Member Role/Relationship Status Dates Dr. Eleuterio Dunn MD Primary Care Provider Acti ve Team Status: Inactive Member Role/Relationship Status Dates Dr. Eleuterio Dunn MD Primary Care Provider Acti ve Start: February 25, 2025 End: February 25, 2025 Dr. Eleuterio Dunn MD Attending Provider Active Start: February 25, 2025 End: February 25, 2025 Dr. Eleuterio Dunn MD Referring Provider Active Start: February 25, 2025 End: February 25, 2025 Team Status: Inactive Member Role/Relationship Status Dates Dr. Kelly Marley MD Referring Provider Active Start: April 13, 2025 End: April 13, 2025 Dr. Jamee Tariq MD Attending Provider Active Start: April 13, 2025 End: April 13, 2025 Dr. Eleuterio Dunn MD Primary Care Provider Acti ve Start: April 13, 2025 End: April 13, 2025 INFORMATION SOURCE (unrecogn ized section and content) DATE CREATED AUTHOR 03/11/2023 [facility] DATE CREATED AUTHOR AUTHOR'S ORGANIZ ATION 04/15/2025 [facility] FOR RECORDS PERTAINING TO PATIENTS WHO [...] BE BASED ON THE PRIMARY CLINICAL RECORDS. [employer] [facility]. provides no warranty or guarantee of the accuracy or completeness of information in this document.
[2025-04-16 10:15] LABS: Hematocrit 41.3 % (37-47); Hemoglobin 13.6 g/dL (12.0-15.0); Immature Granulocytes Count 0.020 X10^3/uL (0.0-0.0); Mean Corp Hgb Conc 32.9 g/dL (32-36); Mean Corpuscular Volume 90.6 fL (81-99); Mean Platelet Vol. 10.8 fl (6.2-12.0); NRBC Flagged by Analyzer 0 % (0-5); Platelet Count 337 K/mm3 (150-450); RBC Distribution Width CV 12.1 % (11.6-14.6); RBC Distribution Width SD 39.8 fl (35.1-43.9); Red Blood Count 4.56 M/mm3 (4.2-5.4); White Blood Count 7.6 K/mm3 (4.4-11.0)
[2025-04-16 10:45] LABS: AST(SGOT) 20 U/L (<=31); Alanine Aminotransfer ALT/SGPT 19 U/L (<=34); Albumin, Serum 4.5 g/dL (3.5-5.0); Alkaline Phosphatase 80 U/L (35-104); Anion Gap 11 (5-15); BUN 9 mg/dL (4-19); BUN/Creat Ratio 13.5 RATIO (10-20); Calcium,Total 10.2 mg/dL (7.6-11.0); Carbon Dioxide 27.3 mmol/L (21.0-32.0); Chloride 103 mmol/L (98-108); Cholesterol 213 mg/dL (<=200); Globulin 3.0 g/dL (2.2-4.2); Glucose 86 mg/dL (70-99); Low Density Lipoprotein Calc. 111 mg/dL; Potassium 3.7 mmol/L (3.3-5.1); Triglycerides 232 mg/dL; Very Low Density Lipoprotein 46 mg/dL (5-40); cholesterol:hdl ratio screen 3.80
== END | disposition home or self-care (01) ==
LOC: MTLAB 07:36
PROVIDERS: PCP Internal Medicine; Referring Provider Internal Medicine; Visit Provider Internal Medicine
DX: Z00.00 Encounter for general adult medical examination without abnormal findings (principal); Z13.6 Encounter for screening for cardiovascular disorders
CPT/HCPCS: 36415; 80053; 80061; 85025